=== PATIENT | female | born 2000 | race Two or more races ===

== ENCOUNTER 2022-06-01 08:06 | Inpatient (IN) ==
[2022-06-01] MEDS ORDERED: CARBOPROST TROMETHAMINE 250 MCG/ML AMP IM PRN (08:30)
[2022-06-01] MEDS ORDERED: CITRIC ACID/SODIUM CITRATE 30 ML UDCUP PO ONE (08:30)
[2022-06-01] MEDS ORDERED: miSOPROStoL 200 MCG TABLET RECTAL PRN (08:30)
[2022-06-01] MEDS ORDERED: TRANEXAMIC ACID 1,000 MG in SODIUM CHLORIDE 0.9% 100 ML IV PRN (08:30)
[2022-06-01] MEDS ORDERED: LACTATED RINGERS 1,000 ML IV SCH ×2 (08:30→11:00)
[2022-06-01] MEDS ORDERED: OXYTOCIN/LR 20 UNIT/1,000 ML BAG IV ONE ×2 (08:30→10:48)
[2022-06-01] MEDS ORDERED: METHYLERGONOVINE 0.2 MG/1 ML AMP IM PRN (08:30)
[2022-06-01] MEDS ORDERED: FAMOTIDINE 20 MG/2 ML VIAL IV ONE (08:36)
[2022-06-01] MEDS ORDERED: ceFAZolin 2,000 MG/50 ML DUPLEX IV ONE (08:36)
[2022-06-01] MEDS ORDERED: OXYTOCIN/LR 30 UNIT/1,000 ML BAG IV ONE (08:37)
[2022-06-01] MEDS ORDERED: OXYTOCIN 10 UNIT/ML VIAL IM ONE (08:37)
[2022-06-01 08:56] LABS: Basophils % 0.2 % (0.0-0.8); Eosinophils # 0.1 10*3/uL (0.0-0.87); Eosinophils % 0.7 % (0.00-10.9); Hematocrit 33.8 VOL% (35.7-47.0); Hemoglobin 10.4 GM/DL (12.0-16.0); Immature Granulocytes % 0.7 %; Immature Granulocytes Absolute 0.06 #; Lymphocytes # 2.5 10*3/uL (1.4-4.0); Lymphocytes % 28.2 % (21.3-54.2); Mean Corpuscular HGB Conc 30.8 GM/DL (32-36); Mean Corpuscular Volume 80.5 FL (87-102); Mean Platelet Volume 12.5 FL (9.6-12.0); Monocytes # 0.6 10*3/uL (0.11-0.8); Monocytes % 6.8 % (1.7-12.7); Neutrophils % 63.4 % (38.7-73.9); Platelet Count 210 T/CUMM (130-400); Red Cell Distribution Width 15.2 % (9.3-17.3); White Blood Count 8.7 T/CUMM (4-12)
[2022-06-01] MEDS ORDERED: BUPIVACAINE SPINAL 0.75% 2 ML AMP SPINAL ONE (09:05)
[2022-06-01] MEDS ORDERED: buprenorphine HCL 0.3 MG/ML VIAL ONE (09:05)
[2022-06-01] MEDS ORDERED: ONDANSETRON 4 MG/2 ML VIAL ONE (09:05)
[2022-06-01] MEDS ORDERED: ACETAMINOPHEN INJ 1,000 MG/100 ML VIAL IV ONE (09:08)
[2022-06-01] MEDS ORDERED: KETOROLAC 30 MG/1 ML VIAL ONE (09:09)
[2022-06-01] MEDS ORDERED: PHENYLEPHRINE 1 MG/10 ML SYRINGE IV ONE (09:09)
[2022-06-01 09:23] LABS: Alanine Aminotransferase 14 U/L (13-56); Albumin 2.7 G/DL (3.4-5.0); Alkaline Phosphatase 224 U/L (45-117); Aspartate Amino Transferase 17 U/L (0-37); Bilirubin,Total < 0.39 MG/DL (0.20-1.00); Blood Urea Nitrogen 8 MG/DL (7-18); Calcium 8.7 MG/DL (8.5-10.1); Carbon Dioxide 24 MMOL/L (21-32); Chloride 108 MMOL/L (98-107); Glucose 83 MG/DL (74-106); Osmolality,Calculated 275.4 MOS/KG (273-304); Potassium 3.9 MMOL/L (3.5-5.1); Sodium 140 MMOL/L (136-145); Total Protein 7.4 G/DL (6.4-8.2)
[2022-06-01 10:35] LABS: Bacteria,Urine Few /HPF (Few); Bilirubin,Urine Negative (Negative); Blood, Urine Negative (Negative); Glucose,Urine (UA) Negative (Negative); Ketones,Urine Negative (Negative); Mucus,Urine Occasional /LPF (Occasional); Nitrite,Urine Positive (Negative); Protein,Urine Negative (Negative); RBC,Urine 2 /HPF (0-4); Urine Appearance Clear (Clear); Urine Color Yellow (Yellow); Urine Urobilinogen 0.2 eU/dL (<2.0)
[2022-06-01 10:40] LABS: Cord Arterial Blood HCO3 21.4 MMOL/L
[2022-06-01 10:42] LABS: Cord Venous Blood HCO3 22.1 MMOL/L; Cord Venous Blood PCO2 48.9 MMHG; Cord Venous Blood PO2 24.7
[2022-06-01] MEDS ORDERED: SIMETHICONE CHEW 80 MG TABLET PO PRN (10:48)
[2022-06-01] MEDS ORDERED: RHO(D) IMMUNE GLOBULIN 300 MCG SYRINGE IM ONE (10:48)
[2022-06-01] MEDS ORDERED: IBUPROFEN 800 MG TABLET PO PRN (10:48)
[2022-06-01] MEDS ORDERED: ONDANSETRON 4 MG/2 ML VIAL IV PRN (10:48)
[2022-06-01] MEDS ORDERED: ACETAMINOPHEN 325 MG TABLET PO PRN (10:48)
[2022-06-01] MEDS ORDERED: HYDROmorphone 1 MG/1 ML SYRINGE IV ONE (13:03)
[2022-06-01] MEDS ORDERED: PROMETHAZINE 25 MG/1 ML VIAL IM PRN (14:39)
[2022-06-01] MEDS: KETOROLAC 30 MG/1 ML VIAL IV SCH ×2 (17:00→23:23)
[2022-06-01] MEDS: ACETAMINOPHEN 500 MG TABLET PO SCH ×2 (17:02→23:22)
[2022-06-01 18:18] LABS: Basophils % 0.1 % (0.0-0.8); Hematocrit 27.3 VOL% (35.7-47.0); Hemoglobin 8.5 GM/DL (12.0-16.0); Immature Granulocytes % 0.6 %; Immature Granulocytes Absolute 0.09 #; Lymphocytes # 1.5 10*3/uL (1.4-4.0); Lymphocytes % 10.6 % (21.3-54.2); Mean Corpuscular HGB Conc 31.1 GM/DL (32-36); Mean Corpuscular Volume 79.1 FL (87-102); Mean Platelet Volume 12.3 FL (9.6-12.0); Monocytes # 0.7 10*3/uL (0.11-0.8); Neutrophils % 83.7 % (38.7-73.9); Platelet Count 180 T/CUMM (130-400); Red Blood Count 3.45 MC/CUMM (3.8-5.5); Red Cell Distribution Width 15.1 % (9.3-17.3); White Blood Count 14.2 T/CUMM (4-12)
[2022-06-01] MEDS: FERROUS SULFATE 325 MG TABLET PO SCH (20:40)
[2022-06-02] MEDS: DOCUSATE SODIUM 100 MG CAPSULE PO SCH ×3 (00:34→20:45)
[2022-06-02] MEDS ORDERED: KETOROLAC 30 MG/1 ML VIAL IV SCH (05:30)
[2022-06-02] MEDS ORDERED: ACETAMINOPHEN 500 MG TABLET PO SCH (05:30)
[2022-06-02 05:46] LABS: Basophils % 0.1 % (0.0-0.8); Eosinophils # 0.1 10*3/uL (0.0-0.87); Eosinophils % 0.5 % (0.00-10.9); Hematocrit 27.6 VOL% (35.7-47.0); Hemoglobin 8.2 GM/DL (12.0-16.0); Immature Granulocytes % 0.4 %; Immature Granulocytes Absolute 0.04 #; Lymphocytes # 2.5 10*3/uL (1.4-4.0); Lymphocytes % 25.9 % (21.3-54.2); Mean Corpuscular HGB Conc 29.7 GM/DL (32-36); Mean Corpuscular Volume 81.2 FL (87-102); Mean Platelet Volume 12.1 FL (9.6-12.0); Monocytes # 0.6 10*3/uL (0.11-0.8); Monocytes % 5.6 % (1.7-12.7); Neutrophils % 67.5 % (38.7-73.9); Platelet Count 165 T/CUMM (130-400); Red Cell Distribution Width 15.1 % (9.3-17.3); White Blood Count 9.8 T/CUMM (4-12)
[2022-06-02] MEDS: FERROUS SULFATE 325 MG TABLET PO SCH ×2 (09:01→20:45)
[2022-06-02] MEDS: MULTIVITAMIN (PRENATAL) TABLET PO SCH (09:01)
[2022-06-02] MEDS: MAGNESIUM HYDROXIDE SUSP 30 ML UDCUP PO PRN ×2 (09:01→20:45)
[2022-06-02] MEDS: METOCLOPRAMIDE 10 MG TABLET PO SCH ×2 (15:27→22:14)
[2022-06-03] MEDS: METOCLOPRAMIDE 10 MG TABLET PO SCH (06:11)
[2022-06-03] MEDS: DOCUSATE SODIUM 100 MG CAPSULE PO SCH ×2 (07:26→08:05)
[2022-06-03] MEDS: FERROUS SULFATE 325 MG TABLET PO SCH ×2 (07:27→08:05)
[2022-06-03] MEDS: MULTIVITAMIN (PRENATAL) TABLET PO SCH ×2 (07:27→08:05)
[2022-06-03 11:46] VITALS: BP 95/58
== END 2022-06-03 14:43 | disposition home or self-care (01) | DRG 540 ==
LOC: N.LDOUT 08:06 → N.LD 08:16 → N.OB 14:04
PROVIDERS: ADMIT Obstetrics & Gynecology; ATTEND Obstetrics & Gynecology
PROC: LDCSECT (ICD-10-PCS; 2022-06-01 10:00)